=== PATIENT | female | born 1945 | race Caucasian/White ===

== ENCOUNTER → 2016-08-26 | Outpatient (CLI) | payer MEDICARE, MEDICAID ==
[~2016-08-26] MED LIST: ALBUTEROL0.63 MG/3 INH; ASPIRIN81 MG PO; BREO ELLIPTA 11 EACH INH; BYSTOLIC2.5 MG PO; CHERATUSSIN AC10 ML PO; CULTURELLE1 CAP PO; DALIRESP500 MCG PO; DEXILANT30 MG PO; INCRUSE ELLI62.5 MCG INH; KLOR-CON M1010 MEQ PO; LASIX40 MG PO; LASIX80 MG PO; LINZESS145 MCG PO; MUCINEX600 MG PO; MULTI COMPLETE1 EACH PO; NEURONTIN300 MG PO; NITROSTAT0.4 MG SL; PAROXETINE HCL30 MG PO; PLAQUENIL200 MG PO; PREDNISONE5 MG PO; PROAIR HFA8.5 GM INH; PULMICORT0.5 MG/2 M INH; REQUIP0.25 MG PO; SINGULAIR10 MG PO; SYNTHROID88 MCG PO; ZANTAC150 MG PO; ZOCOR40 MG PO
== END | disposition short-term general hospital (02) ==
LOC: CLPULM 12:43
DX: J44.9 Chronic obstructive pulmonary disease, unspecified (principal); R91.1 Solitary pulmonary nodule; I25.10 Atherosclerotic heart disease of native coronary artery without angina pectoris; K44.9 Diaphragmatic hernia without obstruction or gangrene

== ENCOUNTER → 2016-09-12 | Outpatient (CLI) | payer MEDICARE, MEDICAID | END | disposition short-term general hospital (02) | LOC: CLCARD 09:23 | DX: I25.10 Atherosclerotic heart disease of native coronary artery without angina pectoris (principal); I10 Essential (primary) hypertension; I27.2 Other secondary pulmonary hypertension; E78.5 Hyperlipidemia, unspecified; J44.9 Chronic obstructive pulmonary disease, unspecified; I08.0 Rheumatic disorders of both mitral and aortic valves; Z95.5 Presence of coronary angioplasty implant and graft; Z79.82 Long term (current) use of aspirin; Z79.899 Other long term (current) drug therapy ==

== ENCOUNTER → 2016-10-21 | Outpatient (CLI) | payer MEDICARE, MEDICAID | END | disposition short-term general hospital (02) | LOC: CLPULM 03:39 | DX: J47.9 Bronchiectasis, uncomplicated (principal); I27.2 Other secondary pulmonary hypertension; I25.10 Atherosclerotic heart disease of native coronary artery without angina pectoris; I51.89 Other ill-defined heart diseases; E03.9 Hypothyroidism, unspecified; G47.61 Periodic limb movement disorder; M32.9 Systemic lupus erythematosus, unspecified; K44.9 Diaphragmatic hernia without obstruction or gangrene; J84.10 Pulmonary fibrosis, unspecified; Z86.19 Personal history of other infectious and parasitic diseases ==